=== PATIENT | female | born 1950 | race Caucasian/White ===

== ENCOUNTER 2017-08-06 18:31 | Emergency (ER) | payer MEDICARE, OTHER ==
[2017-08-06] MEDS ORDERED: HYDROmorphone HCL 1 MG/ML DISP.SYRIN SC ONE (20:47)
[2017-08-06] MEDS ORDERED: HYDROmorphone HCL 1 MG/ML DISP.SYRIN ONE (21:03)
[2017-08-06 21:07] VITALS: BP 169/93
--- NOTE | 2017-08-06 21:29 | ERNOTE ---
Integumentary HPI - Narrative Date of Service: 08/06/17 - General Presenting Symptoms: abscess Time Seen by Provider: 08/06/17 20:46 Source: patient - Immun/Allergies/Home Medications Immunizations: IMMUNIZATION HX Immunizations Up to Date Yes History of Influenza Vaccine No Allergies/Adverse Reactions: Allergies Allergy/AdvReac Type Severity Reaction Status Date / Time Penicillins Allergy Verified 08/06/17 18:47 Sulfa (Sulfonamide Allergy Vomiting Verified 08/06/17 18:47 Antibiotics) Home Medications: HOME MEDICATIONS Ciprofloxacin HCl 500 mg PO BID #14 tablet 08/06/17 [Last Taken Unknown] Enalapril Maleate 1 tab PO DAILY 08/06/17 [Last Taken Unknown] FLUoxetine HCL [Prozac] 10 mg PO DAILY 08/06/17 [Last Taken Unknown] amLODIPine BESYLATE 1 tab PO DAILY 08/06/17 [Last Taken Unknown] - History of Present Illness Narrative: Impression presents with 1 week of an abscess to the left anterior abdominal wall. She says it started as a pimple. It was itchy and irritated. She attempted to pop this. She says that this was a few days ago. Since then has become more inflamed and bothersome. Patient is also complaining of one day of swelling to bilateral labia majora. The anterior towards the clitoris. She does not know of any recent injuries. She denies any fever. She has never had abscesses before. She does not have diabetes. Review of Systems - Review of Systems All Other Systems: All systems neg except as marked - Patient's Past Medical History Patient History - Medical: No pertinent hx Patient History - Cardiac/Respiratory: Hypertension, Hyperlipidemia Patient History - Cancer: No Hx of Cancer Patient History - Surgical Procedures: Back Surgery, Hernia Repair Patient History - Other: None - Social History Living Situations: home Psych History: Hx of Anxiety, Hx of Depression, Current tx/ever been on anti- depressants or anti-anxiety meds Smoking Status: Never smoker Alcohol Use: none Drug Use: none - Immunizations Immunizations Up to Date: Yes History of Influenza Vaccine: No Physical Exam - Physical Exam General Appearance: Present: wd/wn, alert, no apparent distress Head Exam: Present: normal inspection, no evidence of injury Ears, Nose, Throat: Present: normal ENT inspection, normal pharynx Neck: Present: normal inspection, nontender Respiratory: Present: no respiratory distress, normal breath sounds, no accessory muscle use, chest nontender, lungs clear Cardiovascular/Chest: Present: regular rate, rhythm, no murmur, normal peripheral pulses Gastrointestinal/Abdominal: Present: normal bowel sounds, nontender, nondistended, soft, no organomegaly Back Exam: Present: normal inspection, normal range of motion, no CVA tenderness Extremity Exam: Present: normal inspection, non-tender, no edema Neurological Exam: Present: alert, oriented, normal mood/affect, no motor/ sensory deficits Skin Exam: Present: other - patient has a 2 cm erythematous area on the abdominal wall the left lower quadrant. There is a bit of thickening centrally. The patient also has thickening of bilateral anterior labia majora near the frenulum Lymphatic Exam: Present: no adenopathy ED Progress - Vital Signs Patient's Vital Signs:: I have reviewed the patient's vital signs. Vital Signs: Vital Signs 08/06/17 08/06/17 18:38 21:06 Temperature 37.1 C Pulse Rate 88 80 Respiratory 18 18 Rate Blood Pressure 159/99 169/93 O2 Sat by Pulse 98 98 Oximetry - Progress/Reassessment Chief Complaint: Abscess Procedures Left Abdomen Anesthesia: 1% Lidocaine I & D Prep: betadine prep Blade Size: 15 Findings and Actions: purulent drainage small, probed/breakup loculation Complications: Pt marvin procedure well Left Groin Anesthesia: 1% Lidocaine I & D Prep: betadine prep Blade Size: 15 Findings and Actions: other - the area was only thickened. There were no purulent pockets to break up or to drain Complications: Pt marvin procedure well Departure Clinical Impression: Abscess - Departure Disposition: Home self-care Condition: Good Instructions: Incision and Drainage, Care After Additional Instructions: As we discussed, you do have an abscess in her abdominal wall. This has been drained. He should recheck down and keep the edges of the wound opened by gentle pressure once a day well in the shower. This for 3-4 days. It should heal up very well. The abscess in your vagina has not truly formed into a pus pocket. There is just a bunch of inflammation of the skin. It is my hope with the antibiotics that you will not develop pus pocket. They called the prescribed antibiotics. Call your family doctor and set up a follow-up appointment. Tell them you were seen in the ER seeking a follow-up appointment in the next few days. Next Acute develop a high fever, increased swelling, redness in your groin or on her abdomen, or any new concerning symptoms return to the ER. Next Of course return to the ER for new concerning symptoms Referrals: Zacarias Loving ARNP [Primary Care Provider] - Prescriptions: Ciprofloxacin HCl 500 mg PO BID #14 tablet
== END 2017-08-06 21:50 | disposition home or self-care (01) ==
LOC: ER 18:31
PROC: 0H97XZZ Drainage of Abdomen Skin, External Approach (ICD-10-PCS; principal; 2017-08-06)
PROC: 0H9AXZZ Drainage of Inguinal Skin, External Approach (ICD-10-PCS; 2017-08-06)
DX: L02.211 Cutaneous abscess of abdominal wall (principal); N76.4 Abscess of vulva; I10 Essential (primary) hypertension; E78.5 Hyperlipidemia, unspecified